=== PATIENT | male | born 1965 | race American Indian/Alaskan Native ===

== ENCOUNTER 2018-06-29 17:24 | Emergency (ER) | payer MEDICAID ==
[2018-06-29 17:29] VITALS: BMI 31.6
[2018-06-29 17:37] VITALS: PULSE 76; RESP 18; TEMP 98.3; O2SAT 98
[2018-06-29] MEDS ORDERED: TDAP Vaccine 0.5 mL Syr IM ONE (17:44)
--- NOTE | 2018-06-29 17:48 | ED PDOC ---
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 Reports that it was bleeding earlier prompting ER visit, no active bleeding now. Denies any numbness, decrease in ROM, other injury. Past Medical History - Infectious Disease Hx of Infectious Diseases: None - Psychiatric Hx Substance Use: No - Anesthesia Hx Anesthesia: No Family/Social History Family/Social History: No Known Family HX Smoking Status: Never Smoked Hx Alcohol Use: No Hx Substance Use: No Allergies/Home Meds Allergies/Adverse Reactions: Allergies No Known Allergies Allergy (Verified 06/29/18 17:28) Home Medications: Home Meds Medication Instructions Recorded Confirmed No Known Home Med 06/29/18 06/29/18 Review of Systems - Review of Systems Constitutional: absent: Fatigue, Fevers Musculoskeletal: absent: Arthralgias, Joint Swelling Skin: Skin Lesions (+h/o psoriasis), Other (+puncture wound). absent: Rash Physical Exam Vital Signs Temp Pulse Resp BP Pulse Ox 06/29/18 17:33 98.3 F 76 18 174/78 H 98 Temperature: Afebrile Blood Pressure: Hypertensive Pulse: Regular Respiratory Rate: Normal Appearance: Positive for: Well-Appearing, Non-Toxic, Comfortable Pain Distress: None Mental Status: Positive for: Alert and Oriented X 3 - Systems Exam Lower Extremity: Present: NORMAL PULSES, Normal ROM, Neurovascularly Intact, Capillary Refill < 2 s, Other (+1 cm puncture wound to the lateral mid L calf). No: CALF TENDERNESS, Tenderness, Swelling, Erythema, Deformity, Temperature Abnormalties Neurological: Present: GCS=15, CN II-XII Intact, Speech Normal, Motor Func Grossly Intact, Normal Sensory Function Skin: Present: Warm, Dry, Normal Color. No: Rashes Psychiatric: Present: Alert, Oriented x 3, Normal Insight, Normal Concentration Medical Decision Making ED Course and Treatment: 06/29/18 17:46 Plan : - Clean & irrigate wound - Dermabond - Tdap IM Repeat BP 150/86. Patient states that he had a h/o hypertension years ago, but lost over 100 lbs and his bp improved. Patient instructed to follow-up with pmd in 1-2 days without fail. Advised to follow up his BP with his pmd. Return to the emergency room at any time for any new or worsening symptoms. Patient states he fully agrees with and understands discharge instructions. States that he agrees with the plan and disposition. Verbalized and repeated discharge instructions and plan. I have given the patient opportunity to ask any additional questions. 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 Disposition/Present on Arrival - Present on Arrival Any Indicators Present on Arrival: No History of DVT/PE: No History of Uncontrolled Diabetes: No Urinary Catheter: No History of Decub. Ulcer: No History Surgical Site Infection Following: None - Disposition Have Diagnosis and Disposition been Completed?: Yes Diagnosis: Puncture wound Disposition: HOME/ ROUTINE Disposition Time: 17:50 Patient Plan: Discharge Patient Problems: Current Active Problems Problem Status Onset Puncture wound Acute Condition: STABLE Discharge Instructions (ExitCare): Wound Care (DC) Additional Instructions: Thank you for letting us take care of you today. You were treated for puncture wound. The emergency medical care you received today was directed at your acute symptoms. It may take several days for your symptoms to resolve. Return to the Emergency Department if your symptoms worsen, do not improve, or if you have any other problems. Please contact your doctor in 2 days for re-evaluation and follow up / or call one of the physicians/clinics you have been referred to that are listed on the Patient Visit Information form that is included in your discharge packet. Bring any paperwork you were given at discharge with you along with any medications you are taking to your follow up visit. Our treatment cannot replace ongoing medical care by a primary care provider (PCP) outside of the emergency department. Thank you for allowing the [facility] team to be part of your care today. Follow up your blood pressure with your doctor. Forms: FID3 (Y[place]i)
[2018-06-29 18:12] VITALS: BP 150/86
== END 2018-06-29 18:22 | disposition home or self-care (01) ==
LOC: ED 17:24
DX: S81.832A Puncture wound without foreign body, left lower leg, initial encounter (principal); W26.0XXA Contact with knife, initial encounter; Z23 Encounter for immunization